=== PATIENT | female | born 1960 | race Native Hawaiian/Other Pacific Islander ===

== ENCOUNTER 2018-10-31 09:28 | Outpatient (CLI) | payer OTHER | END 2018-10-31 21:42 | disposition home or self-care (01) | LOC: MAMMO 09:28 | DX: Z12.31 Encounter for screening mammogram for malignant neoplasm of breast (principal) ==

== ENCOUNTER 2019-12-26 13:50 | Outpatient (CLI) | payer BC | END 2019-12-26 19:38 | disposition home or self-care (01) | LOC: MAMMO 13:50 | DX: Z12.31 Encounter for screening mammogram for malignant neoplasm of breast (principal) ==

== ENCOUNTER 2020-10-04 10:00 | Observation (INO) | payer BC ==
[~2020-10-04] VITALS: Ht 160 cm; Wt 102.5 kg
[2020-10-04] VITALS (8 sets, daily range): BP systolic 114–215; BP diastolic 52–76; TEMP 97.8–98.4; Ht 160 cm; Wt 102.5 kg
[2020-10-04] MEDS ORDERED: LEVO0.0218 PO (10:32)
[2020-10-04] MEDS ORDERED: EUTHYROX50 MCG PO (10:33)
[2020-10-04] MEDS ORDERED: METFORMIN HYD1000 M1 PO (10:33)
[2020-10-04] MEDS ORDERED: METO25TA2 PO (10:34)
[2020-10-04] MEDS ORDERED: CRESTOR5 MG PO (10:35)
[2020-10-04] MEDS ORDERED: PANTOPRAZOLE 40MG TA PO (10:35)
[2020-10-04] MEDS ORDERED: EC-NAPROXEN500 MG PO (10:35)
[2020-10-04] MEDS ORDERED: VITAMIN D PO (10:36)
[2020-10-04] MEDS ORDERED: TRULICITY0.75 MG/0. SC (10:36)
[2020-10-04] MEDS ORDERED: ALLO300T23 PO (10:37)
[2020-10-04] MEDS ORDERED: GABA300C2 PO (10:37)
[2020-10-04] MEDS ORDERED: VENLAFAXINE75 M2 PO (10:37)
[2020-10-04] MEDS ORDERED: KLOR-CON M2020 MEQ PO (10:38)
[2020-10-04] MEDS ORDERED: OLMESARTAN MEDO40 MG PO (10:38)
[2020-10-04] MEDS ORDERED: FIORICET 50-3001 CAP PO (10:38)
[2020-10-04] MEDS ORDERED: CYCL10TA35 PO (10:39)
[2020-10-04] MEDS ORDERED: FLONASE AL50 MCG/ACT NAS (10:39)
[2020-10-04 10:57] LABS: PLATELET COUNT 140 K/uL (152-353)
[2020-10-04 11:09] LABS: POTASSIUM 3.9 mmol/L (3.6-5.2); SODIUM 137 mmol/L (136-145)
[2020-10-04 11:39] LABS: PARTIAL THROMBOPLASTIN TIME 25.4 SECONDS (24.5-33.6)
[2020-10-05] VITALS: BP 104/42; TEMP 98.3
[2020-10-05 02:56] LABS: PLATELET COUNT 136 K/uL (152-353)
[2020-10-05 03:58] LABS: POTASSIUM 3.5 mmol/L (3.6-5.2)
[2020-10-05 04:00] VITALS: BP 120/51; TEMP 97.9
[2020-10-05 08:00] VITALS: BP 128/56; TEMP 97.9
== END 2020-10-05 12:10 | disposition home or self-care (01) ==
LOC: ED 10:00 → MED/SURG 11:30
PROVIDERS: Hospitalist; ADMIT Family Medicine; ATTEND Family Medicine
DX: R07.89 Other chest pain (principal); H83.09 Labyrinthitis, unspecified ear; H81.10 Benign paroxysmal vertigo, unspecified ear; I20.0 Unstable angina; I10 Essential (primary) hypertension; E11.42 Type 2 diabetes mellitus with diabetic polyneuropathy; E03.8 Other specified hypothyroidism; M79.7 Fibromyalgia; R26.89 Other abnormalities of gait and mobility
CPT/HCPCS: 36415; 80053; 82550; 82607; 82652; 82948; 83605; 83735; 83880; 84100; 84484; 85027; 85610; 85730; 87040; 87502; 87651; 93005; 96365; 96366; 96372; 99220; 99284; G0378; J1650; J1815; Q9963

== ENCOUNTER 2021-01-21 10:53 | Outpatient (CLI) | payer BC ==
[~2021-01-21 10:53] MED LIST: ALLO300T23 PO; CRESTOR5 MG PO; CYCL10TA35 PO; EC-NAPROXEN500 MG PO; EUTHYROX50 MCG PO; FIORICET 50-3001 CAP PO; FLONASE AL50 MCG/ACT NAS; GABA300C2 PO; KLOR-CON M2020 MEQ PO; LEVO0.0218 PO; METFORMIN HYD1000 M1 PO; METO25TA2 PO; OLMESARTAN MEDO40 MG PO; PANTOPRAZOLE 40MG TA PO; TRULICITY0.75 MG/0. SC; VENLAFAXINE75 M2 PO; VITAMIN D PO
== END 2021-01-21 21:38 | disposition home or self-care (01) ==
LOC: LABW 10:53 → MAMMO 10:53
PROVIDERS: ATTEND Family Medicine
DX: Z12.31 Encounter for screening mammogram for malignant neoplasm of breast (principal)

== ENCOUNTER 2022-03-10 13:43 | Outpatient (CLI) | payer OTHER | END 2022-03-10 18:58 | disposition home or self-care (01) | LOC: MAMMO 13:43 | PROVIDERS: ATTEND Family Medicine | DX: Z12.31 Encounter for screening mammogram for malignant neoplasm of breast (principal) ==

== ENCOUNTER 2022-10-24 11:25 | Outpatient (CLI) | payer OTHER | END 2022-10-24 19:20 | disposition home or self-care (01) | LOC: RAD 11:25 | PROVIDERS: ATTEND Nurse Practitioner Family | DX: M54.10 Radiculopathy, site unspecified (principal) ==

== ENCOUNTER 2022-11-10 08:59 | Outpatient (CLI) | payer OTHER | END 2022-11-10 23:35 | disposition home or self-care (01) | LOC: US 08:59 | PROVIDERS: ATTEND Nurse Practitioner Family | DX: K74.60 Unspecified cirrhosis of liver (principal); K75.81 Nonalcoholic steatohepatitis (NASH); D69.6 Thrombocytopenia, unspecified ==